=== PATIENT | female | born 1960 | race Caucasian/White ===

== ENCOUNTER 2018-06-26 10:26 | Emergency (ER) | payer OTHER ==
--- NOTE | 2018-06-26 13:21 | EDPHY ---
HPI/HX/ROS/PE/MDM Narrative: CHIEF COMPLAINT: Pleuritic chest pain HISTORY OF PRESENT ILLNESS: The patient is a 58 y/o female with a history of gastritis complaining of central and right-sided chest heaviness and pleuritic pain since 15:00 yesterday, almost 24 hours ago. 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 Pain is currently about 3/10 in severity and when at its worse she rates it 5/10. Bending over aggravates pain. Deep breathing aggravates the pain. No associated throat, jaw, or abdominal pain, nor nausea or diaphoresis. Symptoms do not feel similar to prior reflux episodes during which she usually gets an acidic taste in her mouth. She currently has a mild sore throat, patient denies any upper respiratory infection symptoms previously, specifically no fever, cough, sputum production. No known history of gallbladder disease, hypertension, diabetes, kidney disease, liver disease, or blood clots. No family history of cardiac disease at a young age. She is post-menopausal and not on hormone replacement therapy. No fever, chills, shortness of breath, palpitations, vomiting, diarrhea, urinary complaints, headache, lightheadedness, cough, recent travel, recent trauma. REVIEW OF SYSTEMS: Aside from elements discussed in the HPI, a comprehensive 10-point review of systems was reviewed and is negative. PAST MEDICAL HISTORY: Reflux; bipolar disorder - [place]; inflammatory colitis - in remission; mitral valve prolapse. SOCIAL HISTORY: Former smoker, quit 20 years ago. Occasional alcohol use, none recently. 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 VITAL SIGNS: Reviewed by me. No hypoxemia, tachycardia, or tachypnea. GENERAL: Well-developed, well-nourished, resting comfortably in no respiratory distress. HEENT: Atraumatic. Ears: TMs partially occluded by cerumen bilaterally. Eyes: No icterus, no injection. Mouth: moist mucous membranes. No erythema or lesions. Neck: supple with no adenopathy. LUNGS: Slightly diminished but clear. CARDIAC: Regular rate and rhythm, no rubs, murmurs or gallops. CHEST: No tenderness to palpation. No crepitus. ABDOMEN: Soft, nontender, nondistended, bowel sounds normal. BACK: No CVA tenderness. EXTREMITIES: No trauma. No edema. Range of motion is normal throughout. NEURO: Alert and oriented, grossly nonfocal. SKIN: Warm and dry, no rash. PSYCHIATRIC: Normal mentation, no agitation. Portions of this note were transcribed by a medical reimbursement specialist. I personally performed a history, physical exam, medical decision making, and confirmed accuracy of information the transcribed note. ED Course: Well-appearing 58 y/o female presents with a 1-day history of improving pleuritic chest pain and heaviness now associated with a sore throat. Benign exam. Plan for IV, labs, EKG, chest x-ray. The 12 lead EKG was interpreted by myself. Sinus mechanism rate 67. T wave inversions and flatting V1-V4. See hard copy and/or "tracemaster" electronic copy for interpretation. Chest x-ray: Increased lung volumes. Patient's bedside troponin is negative. Labs are normal. D-dimer slightly elevated at 0.58. This could be within at age adjusted cut off, however, at this point I have no clear explanation for the patient's pleuritic pain. CT scan was obtained which does not indicate any pulmonary embolism. There are some findings suggestive of airways disease and atelectasis. Report also indicates opacifications which may be inflammatory versus infectious. Patient received an albuterol neb. I discussed the heart score with the patient. At this point she has a heart score of 2. HEART SCORE: History: 0 EK Age: 1 Risk Factors: 0 Troponin: 0 Repeat EKG was obtained. Repeat troponin was also obtained at this time. It is slightly less than 4 hr after the 1st troponin in the emergency department, however, the patient does report that her pain has been present consistently since last night. Discussions held again with the patient concerning the evaluation. At this point she reports that she does feel little bit scratching the back of her throat. As she does have a reported possible infectious opacifications in the right middle and lower lobes of the chest CT scan, patient was given a short course of azithromycin to treat any early pneumonia. MDM: After history and physical examination, the differential for chest pain was considered, including but not limited to, myocardial ischemia, acute coronary syndrome, pulmonary embolus, chest wall pain, pleural inflammation and pulmonary infectious causes. - Data Points Imaging Results: Chest X-Ray 06/26/18 13:19 Impression: Chest negative for acute abnormality, not significantly changed from the prior study. There may be an element of hyperexpansion. Chest/Thorax CTA 06/26/18 14:16 Impression: 1. No visible pulmonary embolus. 2. Small indistinct right middle lobe opacities, possibly inflammatory or infectious, or related to subsegmental atelectasis. 3. Additional findings as above. Findings discussed with Dr. Tori Corral on June 26, 2018 at 1528 hours. Imaging: Discussed imaging studies w/ call center associate Radiologist, I viewed and interpreted images myself Laboratory Results: Laboratory Results 06/26/18 13:52 06/26/18 13:52 Medications Given: Discontinued Medications Al Hydroxide/Mg Hydroxide (Maalox Susp) 30 ml PO ONCE ONE Stop: 06/26/18 13:42 Last Admin: 06/26/18 13:57 Dose: 30 ml Albuterol (Proventil Neb) 3 ml IH EDNOW ONE Stop: 06/26/18 15:30 Last Admin: 06/26/18 15:58 Dose: 3 ml Hyoscyamine Sulfate (Levsin, Hyomax-Sl) 0.25 mg PO ONCE ONE Stop: 06/26/18 13:42 Last Admin: 06/26/18 13:57 Dose: 0.25 mg Sodium Chloride (Ns) 500 mls @ 0 mls/hr IV EDNOW ONE; Wide Open PRN Reason: Protocol Stop: 06/26/18 13:42 Last Admin: 06/26/18 13:56 Dose: 500 mls Lidocaine (Lidocaine 2% Viscous) 15 ml PO ONCE ONE Stop: 06/26/18 13:42 Last Admin: 06/26/18 13:57 Dose: 15 ml Point of Care Test Results: Chemistry 06/26/18 06/26/18 16:00 13:30 POC Troponin I 0.00 ng/mL ng/mL 0.00 ng/mL ng/mL (0.00-0.08) (0.00-0.08) General Time Seen by Provider: 06/26/18 13:15 Initial Vital Signs: Initial Vital Signs Temperature (C) 36.5 C 06/26/18 10:35 Heart Rate 73 06/26/18 10:35 Respiratory Rate 18 06/26/18 10:35 Blood Pressure 124/76 H 06/26/18 10:35 O2 Sat (%) 99 01/31/19 10:35 O2 Delivery Mode Room Air Allergies/Adverse Reactions: No Known Allergies Allergy (Unverified 06/26/18 10:38) Home Medications: Medication Instructions Recorded Albuterol [Ventolin Hfa Inhaler] 2 - 4 puffs IH QID PRN #1 mdi 06/26/18 Atenolol 06/26/18 Azithromycin 250 - 500 mg PO DAILY #6 tablet 06/26/18 [place] 06/26/18 [place] Carbonate 06/26/18 Pepcid 06/26/18 VYVANSE 06/26/18 Wellbutrin Sr 06/26/18 Departure - Departure Disposition: Home, Routine, Self-Care Clinical Impression: Chest tightness, Bronchospastic airway disease Condition: Fair Instructions: Chest Pain (ED), Acute Bronchitis (ED), Bronchospasm (ED) Additional Instructions: I believe your chest discomfort is related to airways disease with some bronchospasm. Please use the albuterol meter dose inhaler as directed. 2-4 puffs every 4-6 hours as needed for shortness of breath or chest discomfort If you developed fever, cough, or symptoms related to an infection, you may fill the prescription for azithromycin. Please follow up urgently with your primary care physician if you continued to experience significant chest discomfort, or are worsening despite the above treatment, you have concerns regarding ongoing pulmonary issues. Otherwise, please follow-up with Dr. North to ensure that you are improving. Referrals: [facility] [Primary Care Provider] - As per Instructions Prescriptions: Albuterol [Ventolin Hfa Inhaler] 2 - 4 puffs IH QID PRN #1 mdi PRN Reason: shortness of breath Azithromycin 250 - 500 mg PO DAILY #6 tablet Report Scribed for: Tori Corral Report Scribed by: Rissa Jeffery Date of Report: 06/26/18 Time of Report: 13:32
[2018-06-26] MEDS ORDERED: HYOSCYAMINE SULFATE 0.125 MG TAB PO ONE (13:41)
[2018-06-26] MEDS ORDERED: LIDOCAINE 2% VISCOUS 15 ML UDCUP PO ONE (13:41)
[2018-06-26] MEDS ORDERED: NS 500 ML IV ONE (13:41)
[2018-06-26] MEDS ORDERED: MAG HYDROX/AL HYDROX/SIMETH 30 ML UDCUP PO ONE (13:41)
[2018-06-26 13:59] LABS: PLATELET COUNT 201 10^3/uL (150-400)
[2018-06-26 14:13] LABS: INR 0.97 (0.83-1.16); PROTIME(PATIENT) 13.1 SEC (12.0-15.0)
[2018-06-26] MEDS ORDERED: IOHEXOL 350mgI/ML (OMNIPAQUE) 150 ML BTL IV ONE (14:40)
[2018-06-26] MEDS ORDERED: ALBUTEROL 3 ML DEYVIAL IH ONE (15:29)
[2018-06-26 19:24] VITALS: BP 122/84
--- NOTE | 2018-06-27 13:37 | CPEKG ---
Test Reason : OPEN Blood Pressure : / mmHG Vent. Rate : 055 BPM Atrial Rate : 056 BPM P-R Int : 158 ms QRS Dur : 089 ms QT Int : 400 ms P-R-T Axes : 057 056 034 degrees QTc Int : 383 ms Sinus rhythm Probable left atrial enlargement Low voltage, extremity and precordial leads Confirmed by Tori Corral ([id number]) on 06/27/2018 1:37:21 PM Referred By: Tori Corral Confirmed By:Tori Corral
--- NOTE | 2018-06-27 13:39 | CPEKG ---
Test Reason : OPEN Blood Pressure : / mmHG Vent. Rate : 067 BPM Atrial Rate : 069 BPM P-R Int : 147 ms QRS Dur : 083 ms QT Int : 387 ms P-R-T Axes : 074 078 053 degrees QTc Int : 409 ms Sinus rhythm Nonspecific T abnormalities, anterior leads Confirmed by Tori Corral ([id number]) on 06/27/2018 1:38:48 PM Referred By: PHYSICIAN ED Confirmed By:Tori Corral
== END 2018-06-26 17:08 | disposition home or self-care (01) ==
DX: J98.01 Acute bronchospasm (principal); R07.81 Pleurodynia; K21.9 Gastro-esophageal reflux disease without esophagitis; E86.9 Volume depletion, unspecified
CPT/HCPCS: 84484-ER; J7613; Q9967